=== PATIENT | female | born 1990 | race Caucasian/White ===

== ENCOUNTER 2016-08-02 20:48 | Emergency (ER) | payer OTHER | END 2016-08-02 23:55 | disposition home or self-care (01) | LOC: FER 20:48 | DX: M54.6 Pain in thoracic spine (principal); M54.5 Low back pain; Z88.0 Allergy status to penicillin | CPT/HCPCS: J1885 ==

== ENCOUNTER 2021-02-13 03:27 | Emergency (ER) | payer OTHER | END 2021-02-13 09:23 | disposition home or self-care (01) | LOC: FER 03:27 | DX: O20.9 Hemorrhage in early pregnancy, unspecified (principal); O16.1 Unspecified maternal hypertension, first trimester; Z88.0 Allergy status to penicillin; Z3A.12 12 weeks gestation of pregnancy ==